=== PATIENT | female | born 1990 | race Caucasian/White ===

== ENCOUNTER 2016-11-22 11:33 | Emergency (ER) | payer OTHER ==
[2016-11-22 11:42] VITALS: TEMP 98.5
[2016-11-22 12:09] LABS: URINE BILIRUBIN NEGATIVE (NEGATIVE); URINE BLOOD MODERATE (NEGATIVE); URINE GLUCOSE (UA) NEGATIVE (NEGATIVE); URINE KETONE NEGATIVE (NEGATIVE); URINE LEUKOCYTE ESTERASE NEGATIVE Leu/uL (NEGATIVE); URINE PROTEIN TRACE mg/dL (<30 mg/dL)
[2016-11-22 12:10] LABS: URINE APPEARANCE CLEAR (CLEAR); URINE COLOR YELLOW (YELLOW)
--- NOTE | 2016-11-22 12:15 | ED PDOC ---
Arrival/HPI - General Historian: Patient - History of Present Illness Time/Duration: < week Symptom Onset: Sudden Symptom Course: Unchanged Quality: Pressure Severity Level: 7 <John Aponte - Last Filed: 11/22/16 17:21> <Jb Cardoso - Last Filed: 11/22/16 17:37> - General Chief Complaint: Abdominal Pain Time Seen by Provider: 11/22/16 11:42 - History of Present Illness Narrative History of Present Illness (Text): 11/22/16 12:08 This is a 26 year old female with PMHx seizures and UTI who presented for evaluation of abdominal pain. Pain is along the left lower quadrant and is non- radiating, described as a 7/10 pressure sensation. Patient states that pain began 2 days ago and is not relieved by Ibuprofen. At the same time, patient also started experiencing clear non-odorous vaginal discharge. Patient states that her pain feels different from the time she had a UTI. Patient denies fever , chills, n/v/c/d, chest pain, dyspnea, dysuria. Patient's LMP was on 11/11/16. ( John Aponte) Past Medical History - Provider Review Nursing Documentation Reviewed: Yes - Infectious Disease Hx of Infectious Diseases: None - Reproductive Menopause: No - Neurological Hx Seizures: Yes - Psychiatric Hx Substance Use: Yes <SukiJohn fletcher - Last Filed: 11/22/16 17:21> Family/Social History - Physician Review Nursing Documentation Reviewed: Yes Family/Social History: No Known Family HX Smoking Status: Current Some Days Smoker Hx Alcohol Use: No Hx Substance Use: Yes Substance used: marijuana <FayJohn S - Last Filed: 11/22/16 17:21> Allergies/Home Meds <John Aponte - Last Filed: 11/22/16 17:21> <Jb Cardoso - Last Filed: 11/22/16 17:37> Allergies/Adverse Reactions: Allergies No Known Allergies Allergy (Verified 11/22/16 11:40) Review of Systems - Review of Systems Constitutional: Normal. absent: Fevers Eyes: Normal ENT: Normal Respiratory: Normal. absent: SOB Cardiovascular: Normal. absent: Chest Pain Gastrointestinal: Abdominal Pain (left lower quadrant). absent: Constipation, Diarrhea, Nausea, Vomiting Genitourinary Female: Vaginal Discharge (clear non-odorous). absent: Dysuria Musculoskeletal: Normal Skin: Normal Neurological: Normal Endocrine: Normal Hemo/Lymphatic: Normal Psychiatric: Normal <John Aponte - Last Filed: 11/22/16 17:21> Physical Exam Vital Signs Reviewed: Yes Temperature: Afebrile Blood Pressure: Normal Pulse: Regular Respiratory Rate: Normal Appearance: Positive for: Well-Appearing Pain Distress: None Mental Status: Positive for: Alert and Oriented X 3 - Systems Exam Head: Present: Atraumatic, Normocephalic Pupils: Present: PERRL Extroacular Muscles: Present: EOMI Conjunctiva: Present: Normal Mouth: Present: Moist Mucous Membranes Neck: Present: Normal Range of Motion Respiratory/Chest: Present: Clear to Auscultation, Good Air Exchange. No: Accessory Muscle Use Cardiovascular: Present: Regular Rate and Rhythm, Normal S1, S2 Abdomen: Present: Tenderness (LLQ tenderness primarily but some LUQ tenderness as well. ), Normal Bowel Sounds. No: Distention Genitourinary/Pelvic Exam: Present: Normal External Genitalia, Vaginal Discharge (thick white discharge), Adenexal Tenderness (left sided), Cervical os Closed, Other (evidence of yeast present). No: Cervical Motion Tendernes Back: No: CVA Tenderness Upper Extremity: Present: Normal Inspection, NORMAL PULSES. No: Edema Lower Extremity: Present: Normal Inspection, NORMAL PULSES. No: Edema, CALF TENDERNESS Neurological: Present: GCS=15, CN II-XII Intact Skin: Present: Warm, Dry, Normal Color Psychiatric: Present: Alert, Oriented x 3 <John Aponte S - Last Filed: 11/22/16 17:21> Vital Signs Temp Pulse Resp BP Pulse Ox 11/22/16 16:28 66 18 106/71 99 11/22/16 15:21 69 18 104/69 99 11/22/16 13:00 74 18 102/68 99 11/22/16 11:41 98.5 F 70 16 96/67 L 98 Medical Decision Making - Lab Interpretations I have reviewed the lab results: Yes <John Aponte S - Last Filed: 11/22/16 17:21> <Jb Cardoso L - Last Filed: 11/22/16 17:37> ED Course and Treatment: 11/22/16 12:19 Impression: This is a 26 year old female with complaint of LLQ abdominal pain. Pelvic exam chaperoned by JOBY Nguyen. There is evidence of yeast infection as well as left adnexal tenderness on exam. Plan: CBC, CMP, Amylase, Lipase UA Chlamydia/Gonococcal studies Toradol 30 mg IV ordered for pain Transvaginal Ultrasound Ordered: Impression: Right adnexal cyst. Both ovaries do exhibit arterial flow. No definitive secondary signs of right ovarian torsion. Despite the left adnexal tenderness, the cyst was found on the right side per report. 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 Patient given [address] abdomen/pelvis w. PO & IV contrast ordered. 11/22/16 17:18 CT abdomen/pelvis w. PO & IV contrast: FINDINGS: LOWER THORAX: The lung bases are clear. LIVER: The liver is normal in size and there is homogeneous enhancement. No gross lesion or ductal dilatation. GALLBLADDER AND BILE DUCTS: There are no calcified gallstones. PANCREAS: The pancreas is normal in size and there is homogeneous enhancement. No gross lesion or ductal dilatation. SPLEEN: The spleen is normal in size without focal lesion. ADRENALS: Both adrenal glands are normal in size without discrete nodule both. KIDNEYS AND URETERS: Unremarkable. No hydronephrosis. No solid mass. VASCULATURE: Unremarkable. No aortic aneurysm. BOWEL: The small bowel loops are normal in caliber. There is moderate amount of stool in the colon. No bowel dilatation or obstruction APPENDIX: Normal appendix. PERITONEUM: No free fluid. No free air. LYMPH NODES: No enlarged lymph nodes. BLADDER: Over distended and normal in appearance. REPRODUCTIVE: The uterus is normal in size. Both ovaries are positioned higher up in the lower quadrants. There is a 2.5 cm simple cyst in the right ovary BONES: No acute fracture. OTHER FINDINGS: There is a small fat containing umbilical hernia. IMPRESSION: No acute abdominal or pelvic abnormality. No CT evidence for acute appendicitis. Constipation. No evidence of bowel obstruction Both ovaries are positioned higher in the lower quadrants. 2.5 cm simple cyst in the right ovary. 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 She stated that she had an appointment with her frame pulley mortising machine operator on December 05. Patient was instructed to return to the ED if worsening or new concerning symptoms. (John Aponte) A 26 year old female with abdominal pain. In agreement with resident note, which includes further HPI details. Patient was seen and evaluated with resident , came up with plan and treatment together. 11/22/16 17:18 CT and US reviewed. Patient was explained results. Abdomen on reevaluation had mild tenderness left side with no guarding. Improved from arrival. She feels better. She is tolerating PO fluids and food. She will make sure to follow up with OBGYN as she has scheduled on Dec 05. She will return to the ED if symptoms worsen or any other concern. (Jb Cardoso) - Lab Interpretations Lab Results: 11/22/16 12:19 11/22/16 12:19 Lab Results 11/22/16 12:19: Sodium 140, Potassium 4.1, Chloride 104, Carbon Dioxide 29, Anion Gap 11, BUN 14, Creatinine 0.5, Est GFR ( Amer) > 60, Est GFR (Non- Af Amer) > 60, Random Glucose 81, Calcium 9.2, Total Bilirubin 0.3, AST 19, ALT 33, Alkaline Phosphatase 76, Total Protein 7.1, Albumin 3.9, Globulin 3.2, Albumin/Globulin Ratio 1.2, Amylase 65, Lipase 65 11/22/16 12:19: WBC 9.8, RBC 4.26, Hgb 11.4 L, Hct 35.0 L, MCV 82.2, MCH 26.8, MCHC 32.6, RDW 13.9, Plt Count 262, MPV 10.0, Gran % 65.5, Lymph % (Auto) 26.8, [place] % (Auto) 5.8, Eos % (Auto) 1.7, Baso % (Auto) 0.2, Gran # 6.43, Lymph # 2.6 , [place] # 0.6, Eos # 0.2, Baso # 0.02 11/22/16 12:06: Urine Color Yellow, Urine Appearance Clear, Urine pH 7.0, Ur Specific [place] 1.020, Urine Protein Trace H, Urine Glucose (UA) Negative, Urine Ketones Negative, Urine Blood Moderate H, Urine Nitrate Negative, Urine Bilirubin Negative, Urine Urobilinogen 1.0 H, Ur Leukocyte Esterase Negative, Urine RBC 2 - 5, Urine WBC 0 - 2, Ur Epithelial Cells 6 - 8, Urine Bacteria Few - RAD Interpretation Radiology Orders: 11/22/16 12:39 TRANSVAGINAL [US] Stat 11/22/16 13:54 ABDOMEN & PELVIS [ABD PELVIS PO & IV CONTRAST] [CT] Stat - Medication Orders Current Medication Orders: Discontinued Medications Iohexol (Omnipaque 350 100 Ml) Confirm Administered Dose 350 mg .ROUTE .STK-MED ONE Stop: 11/22/16 14:00 Iohexol (Omnipaque 240 (50 Ml)) Confirm Administered Dose 50 ml .ROUTE .STK-MED ONE Stop: 11/22/16 14:05 Ketorolac Tromethamine (Toradol) 30 mg IVP STAT STA Stop: 11/22/16 12:38 Last Admin: 11/22/16 12:46 Dose: 30 mg MAR Pain Assessment Document 11/22/16 12:46 EQ (Rec: 11/22/16 12:46 [place] [id number] Pain Reassessment Is this a pain reassessment? No Sleep Is patient sleeping during reassessment? No Presence of Pain Presence of Pain Yes Pain Scale Used Pain Scale Used Numeric IVP Administration Document 11/22/16 12:46 EQ (Rec: 11/22/16 12:46 EQ [facility] [id number] Charges for Administration # of IVP Administrations 1 Morphine Sulfate (Morphine) 2 mg IVP STAT STA Stop: 11/22/16 13:56 Last Admin: 11/22/16 14:25 Dose: 2 mg MAR Pain Assessment Document 11/22/16 14:25 EQ (Rec: 11/22/16 14:25 EQ [facility] [place] [id number] Pain Reassessment Is this a pain reassessment? No Sleep Is patient sleeping during reassessment? No Presence of Pain Presence of Pain Yes Pain Scale Used Pain Scale Used Numeric IVP Administration Document 11/22/16 14:25 EQ (Rec: 11/22/16 14:25 EQ [facility] [id number] Charges for Administration # of IVP Administrations 1 <John Aponte - Last Filed: 11/22/16 17:21> - PA / LOOM OPERATOR APPRENTICE / Resident Statement MD/DO has reviewed & agrees with the documentation as recorded. MD/DO has examined the patient and agrees with the treatment plan. - Scribe Statement The provider has reviewed the documentation as recorded by the Scribe <Jb Cardoso - Last Filed: 11/22/16 17:37> - Scribe Statement Shahida Ocampo Provider Scribe Attestation: All medical record entries made by the Scribe were at my direction and personally dictated by me. I have reviewed the chart and agree that the record accurately reflects my personal performance of the history, physical exam, medical decision making, and the department course for this patient. I have also personally directed, reviewed, and agree with the discharge instructions and disposition. (Jb Cardoso) Disposition/Present on Arrival - Present on Arrival Any Indicators Present on Arrival: No History of DVT/PE: No History of Uncontrolled Diabetes: No Urinary Catheter: No History of Decub. Ulcer: No History Surgical Site Infection Following: None - Disposition Have Diagnosis and Disposition been Completed?: Yes Disposition Time: 05:00 <John Aponte - Last Filed: 11/22/16 17:21> - Disposition Patient Plan: Discharge <Jb Cardoso - Last Filed: 11/22/16 17:37> - Disposition Diagnosis: Abdominal pain, Vaginal candidiasis Disposition: HOME/ ROUTINE Condition: IMPROVED Discharge Instructions (ExitCare): Vulvovaginal Candidiasis (ED), Acute Abdominal Pain (ED) Additional Instructions: Ms Figueroa, thank you for letting us take care of you today. Your provider was Dr. Cardoso. You were treated for Abdominal pain, Vaginal Candidiasis. The emergency medical care you received today was directed at your acute symptoms. If you were prescribed any medication, please fill it and take as directed. It may take several days for your symptoms to resolve. Return to the Emergency Department if your symptoms worsen, do not improve, or if you have any other problems. Please contact your doctor or call one of the physicians/clinics you have been referred to that are listed on the Patient Visit Information form that is included in your discharge packet. Bring any paperwork you were given at discharge with you along with any medications you are taking to your follow up visit. Our treatment cannot replace ongoing medical care by a primary care provider (PCP) outside of the emergency department. Thank you for allowing the [facility] team to be part of your care today. If you had an X-Ray or CT scan: A Radiologist will review the ED reading if any change in treatment is needed we will contact you. If you had a blood, urine, or wound culture: It will take several days for the results, if any change in treatment is needed we will contact you. If you had an STI test: It will take 48 hours for the results. Please call after 1 week if you have not heard back. Prescriptions: Clotrimazole 1% Vaginal [Lotrimin 1% Vaginal] 1 appful VG QPM #1 tube Naproxen 500 mg PO BID PRN #30 tab PRN Reason: Pain, Moderate (4-7) Referrals: Ayan Houston DO [Staff Provider] - Follow up with primary PCP,NO [Primary Care Provider] - Follow up with primary Forms: [employer] (Palestinian)
[2016-11-22 12:16] LABS: URINE BACTERIA FEW (NEG); URINE WBC 0 - 2 /hpf (0-6)
[2016-11-22 12:32] LABS: ALB/GLOB RATIO 1.2 (1.1-1.8); ALKALINE PHOSPHATASE 76 U/L (38-126); ALT/SGPT 33 U/L (7-56); AMYLASE 65 U/L (35-125); AST/SGOT 19 U/L (14-36); BILIRUBIN,TOTAL 0.3 mg/dL (0.2-1.3); BLOOD UREA NITROGEN 14 mg/dL (7-21); CALCIUM 9.2 mg/dL (8.4-10.5); CARBON DIOXIDE 29 mmol/L (21-33); CHLORIDE 104 mmol/L (98-107); GFR AFRICAN-AMERICAN > 60; GLUCOSE,RANDOM 81 mg/dL (70-110); LIPASE 65 U/L (23-300); POTASSIUM 4.1 mmol/L (3.6-5.0); SODIUM 140 mmol/L (132-148); TOTAL PROTEIN 7.1 g/dL (5.8-8.3)
[2016-11-22 12:35] LABS: BASO # 0.02 K/mm3 (0.0-2.0); BASO % 0.2 % (0.0-3.0); EOS # 0.2 (0.0-0.7); EOS % 1.7 % (1.5-5.0); GRAN # 6.43 (1.4-6.5); GRAN % 65.5 % (50.0-68.0); LYMPH # 2.6 (1.2-3.4); LYMPH % 26.8 % (22.0-35.0); MEAN CELL VOLUME 82.2 fl (80.0-105.0); MEAN CORPUSCULAR HEMOGLOBIN 26.8 pg (25.0-35.0); MEAN CORPUSCULAR HGB CONC 32.6 g/dl (31.0-37.0); MONO # 0.6 (0.1-0.6); MONO % 5.8 % (1.0-6.0); RED CELL DISTRIBUTION WIDTH 13.9 % (11.5-14.5); WHITE BLOOD COUNT 9.8 10^3/ul (4.5-11.0)
[2016-11-22 13:11] VITALS: RESP 18; O2SAT 99
--- NOTE | 2016-11-22 13:33 | US ---
HISTORY: r/o ovarian torson. left adnexal tenderness COMPARISON: None available. TECHNIQUE: Transabdominal/transvaginal sonographic evaluation of the pelvis performed. FINDINGS: UTERUS: Uterus is anteverted measuring approximately 8.8 x 5.3 x 6.0 cm cm. Normal in size and appearance. No fibroid or other mass lesion seen. ENDOMETRIUM: Measures approximately 6.6 mm mm in diameter. Unremarkable. CERVIX: Cervix measures approximately 3.3 cm. No cervical abnormality identified. RIGHT OVARY: Measures approximately 3.8 x 2.4 x 4.6 cm. No solid mass. Normal flow. . Note made of a small cyst measuring approximately 1.9 x 1.3 x 2.3 cm. The right ovary exhibits arterial flow. No definitive evidence of secondary signs of torsion such is enlargement or edema however clinical correlation recommended. LEFT OVARY: Measures approximately 2.7 x 2.1 x 3.5 cm. No solid mass. Normal flow. FREE FLUID: No significant free fluid noted. OTHER FINDINGS: None. IMPRESSION: Right adnexal cyst. . Both ovaries and do exhibit arterial flow. Note that no definitive evidence of secondary signs of right ovarian torsion however clinical correlation recommended.
[2016-11-22] MEDS ORDERED: Morphine 2 mg/ml ISec IVP STA (13:55)
[2016-11-22] MEDS ORDERED: Iohexol 350 MG/100 ML VIAL ONE (13:59)
[2016-11-22] MEDS ORDERED: Iohexol 240 (50 ml) ONE (14:04)
[2016-11-22 16:33] VITALS: BP 106/71; PULSE 66
--- NOTE | 2016-11-22 16:41 | CT ---
PROCEDURE: CT Abdomen and Pelvis with contrast HISTORY: abdominal pain. r/o appendicitis or diverticulitis COMPARISON: None. TECHNIQUE: CT scan of the abdomen and pelvis was performed after intravenous administration of contrast. Oral contrast was administered. Coronal and sagittal reformatted images were obtained. Contrast dose: 100 mL Omnipaque 350 Radiation dose: Total exam DLP = 479.93 mGy-cm. This CT exam was performed using one or more of the following dose reduction techniques: Automated exposure control, adjustment of the mA and/or kV according to patient size, and/or use of iterative reconstruction technique. FINDINGS: LOWER THORAX: The lung bases are clear. LIVER: The liver is normal in size and there is homogeneous enhancement. No gross lesion or ductal dilatation. GALLBLADDER AND BILE DUCTS: There are no calcified gallstones. PANCREAS: The pancreas is normal in size and there is homogeneous enhancement. No gross lesion or ductal dilatation. SPLEEN: The spleen is normal in size without focal lesion. ADRENALS: Both adrenal glands are normal in size without discrete nodule both. KIDNEYS AND URETERS: Unremarkable. No hydronephrosis. No solid mass. VASCULATURE: Unremarkable. No aortic aneurysm. BOWEL: The small bowel loops are normal in caliber. There is moderate amount of stool in the colon. No bowel dilatation or obstruction APPENDIX: Normal appendix. PERITONEUM: No free fluid. No free air. LYMPH NODES: No enlarged lymph nodes. BLADDER: Over distended and normal in appearance. REPRODUCTIVE: The uterus is normal in size. Both ovaries are positioned higher up in the lower quadrants. There is a 2.5 cm simple cyst in the right ovary BONES: No acute fracture. OTHER FINDINGS: There is a small fat containing umbilical hernia. IMPRESSION: No acute abdominal or pelvic abnormality. No CT evidence for acute appendicitis. Constipation. No evidence of bowel obstruction Both ovaries are positioned higher in the lower quadrants. 2.5 cm simple cyst in the right ovary.
== END 2016-11-22 17:17 | disposition home or self-care (01) ==
LOC: ED 11:33
DX: B37.3 Candidiasis of vulva and vagina (principal); R10.9 Unspecified abdominal pain
CPT/HCPCS: 74177; 76830; 80053; 81001; 82150; 83690; 85025; 87491; 87591; 96374; 96375; 99284; J1885; J2270; Q9966; Q9967

== ENCOUNTER 2016-12-08 13:52 | Emergency (ER) | payer OTHER ==
[2016-12-08 14:20] VITALS: TEMP 98.3
--- NOTE | 2016-12-08 14:44 | ED PDOC ---
Arrival/HPI - General Chief Complaint: Seizure Time Seen by Provider: 12/08/16 14:34 Historian: Patient - History of Present Illness Narrative History of Present Illness (Text): 12/08/16 14:30 A 26 year old female, whose past medical history includes seizures since childhood currently taking topamax and lamictal, presents to emergency department immediately after a witnessed seizure. The patient states she fell off the bed and currently has neck pain. The patient is no longer postictal. The patient denies any other complaints at this time. Time/Duration: Prior to Arrival Symptom Onset: Sudden Symptom Course: Improving Activities at Onset: Light Context: Home Past Medical History - Provider Review Nursing Documentation Reviewed: Yes - Infectious Disease Hx of Infectious Diseases: None - Reproductive Menopause: No - Neurological Hx Seizures: Yes - Psychiatric Hx Substance Use: Yes - Anesthesia Hx Anesthesia: No Family/Social History - Physician Review Nursing Documentation Reviewed: Yes Family/Social History: Unknown Family HX Smoking Status: Current Some Days Smoker Hx Alcohol Use: No Hx Substance Use: Yes Substance used: marijuana Allergies/Home Meds Allergies/Adverse Reactions: Allergies No Known Allergies Allergy (Verified 12/08/16 14:14) Home Medications: Home Meds Medication Instructions Recorded Confirmed Topiramate [Topamax] 0 mg PO BID 12/08/16 12/08/16 Physical Exam - Physical Exam Narrative Physical Exam (Text): 12/08/16 14:42 - Review of Systems Constitutional: Normal. absent: Fatigue, Weight Change, Fevers Eyes: Normal ENT: denies sore throat, denies tristhmus Respiratory: Normal. absent: SOB, Cough, Sputum Cardiovascular: absent: Chest Pain, Palpitations, Syncope Gastrointestinal: Normal. absent: Abdominal Pain, Diarrhea, Nausea, Vomiting Genitourinary: Normal. absent: Dysuria, Frequency, Hematuria Musculoskeletal: Neck pain. absent: Arthralgias, Back Pain, Neck Pain Skin: no rashes, no erythema Neurological: absent: Focal Weakness Endocrine: Normal Hemo/Lymphatic: Normal Psychiatric: No suicidal or homicidal ideations Physical exam Patient appears age appropriate in no distress, speaking full sentences without difficulty Head atraumatic. No nasal bone deformity or tenderness, no facial or jaw pain/ swelling. No neck midline tenderness, thoracic and lumbar spine with no midline tenderness. Pt moving b/l upper and lower extremities without difficulty, 5/5 strength, with full active and passive ROM. Distal neurovasc fully intact. Abd soft/nt/nd, no hematomas, no peritoneal signs. Neg. pelvic rock. - Systems Exam Head: Present: Atraumatic, Normocephalic Pupils: Present: PERRL Extroacular Muscles: Present: EOMI Conjunctiva: Present: Normal Mouth: Present: Bilateral tongue abrasions Moist Mucous Membranes Neck: Present: Normal Range of Motion. No: MIDLINE TENDERNESS, Paraspinal Tenderness Respiratory/Chest: Present: Clear to Auscultation, Good Air Exchange. No: Respiratory Distress, Accessory Muscle Use, Tachypneic Cardiovascular: Present: Regular Rate and Rhythm, Normal S1, S2, Peripheal Pulses Present. No: Murmurs Abdomen: Present: Normal Bowel Sounds. No: Tenderness, Distention, Peritoneal Signs, Rebound, Guarding Back: Present: Normal Inspection. No: Midline Tenderness, Paraspinal Tenderness Upper Extremity: Present: Normal Inspection. No: Cyanosis, Edema Lower Extremity: Present: Normal Inspection. No: Edema Neurological: Present: GCS=15, Speech Normal, cranial nerves II through XII fully intact with no cerebellar abnormality, neurosensory fully intact. No focal neurological deficits. Skin: Present: Warm, Dry, Normal Color. No: Rashes Lymphatic: Present: OX3, NI, NC Psychiatric: Present: Alert, Oriented x 3, Normal Insight, Normal Concentration Vital Signs Reviewed: Yes Vital Signs Temp Pulse Resp BP Pulse Ox 12/08/16 14:19 98.3 F 84 18 100/56 L 99 12/08/16 14:07 98 F 76 16 98/64 L 98 Temperature: Afebrile Blood Pressure: Hypotensive Pulse: Regular Respiratory Rate: Normal Appearance: Positive for: Well-Appearing, Non-Toxic, Comfortable Pain Distress: None Mental Status: Positive for: Alert and Oriented X 3 Medical Decision Making ED Course and Treatment: 12/08/16 14:45 Differential Diagnosis included but are not limited to: Seizure Plan: -- Radiology: Cervical Spine -- Labs -- Reassess and disposition Progress Notes: Patient's private neurologist paged; waiting for a call back. 12/08/2016 15:54 Cervical Spin X-Ray IMPRESSION: Normal cervical spine radiographs. Dictator: Benjamin Whitmore MD 12/08/16 16:[address] Dano Vizcaino. waldo Mesa in detail, states to dc pt home on Ativan 1mg PO before bedtime pt states she will make an appt for f/u outpatient states she feels comfortable being dc'd home reports she does not drive, states she is compliant with her medications Pt states she understands to return to the ER right away for new or worsening symptoms or for inability to f/u with PMD or specialist as instructed. Patient states that she fully agrees with and understands discharge instructions. States that she agrees with the plan and disposition. Verbalized and repeated discharge instructions and plan. I have given the patient opportunity to ask any additional questions. - Lab Interpretations Lab Results: 12/08/16 14:45 12/08/16 14:45 Lab Results 12/08/16 14:45: Sodium 141, Potassium 3.6, Chloride 104, Carbon Dioxide 28, Anion Gap 13, BUN 11, Creatinine 0.6 L, Est GFR ( Amer) > 60, Est GFR ( Non-Af Amer) > 60, Random Glucose 102, Calcium 9.0, Total Bilirubin 0.7, AST 22 , ALT 28, Alkaline Phosphatase 70, Total Protein 7.2, Albumin 4.0, Globulin 3.3 , Albumin/Globulin Ratio 1.2 12/08/16 14:45: WBC 7.8 D, RBC 4.18, Hgb 11.2 L, Hct 34.1 L, MCV 81.6, MCH 26.8 , MCHC 32.8, RDW 13.7, Plt Count 269, MPV 9.7, Gran % 65.0, Lymph % (Auto) 26.0 , [place] % (Auto) 5.9, Eos % (Auto) 2.8, Baso % (Auto) 0.3, Gran # 5.04, Lymph # 2.0, [place] # 0.5, Eos # 0.2, Baso # 0.02 - RAD Interpretation Radiology Orders: 12/08/16 14:34 CERVICAL SPINE >18YR W/OBLIQUE [RAD] Stat - Scribe Statement The provider has reviewed the documentation as recorded by the Scribe Kathryn Ventura Provider Scribe Attestation: All medical record entries made by the Scribe were at my direction and personally dictated by me. I have reviewed the chart and agree that the record accurately reflects my personal performance of the history, physical exam, medical decision making, and the department course for this patient. I have also personally directed, reviewed, and agree with the discharge instructions and disposition. Disposition/Present on Arrival - Present on Arrival Any Indicators Present on Arrival: No History of DVT/PE: No History of Uncontrolled Diabetes: No Urinary Catheter: No History of Decub. Ulcer: No History Surgical Site Infection Following: None - Disposition Have Diagnosis and Disposition been Completed?: Yes Diagnosis: Seizure Disposition: HOME/ ROUTINE Disposition Time: 16:58 Patient Plan: Discharge Condition: GOOD Discharge Instructions (ExitCare): Recurrent Seizures in Adults (ED), Epilepsy (ED) Additional Instructions: PLEASE RETURN TO THE EMERGENCY DEPARTMENT FOR NEW OR WORSENING SYMPTOMS. RETURN RIGHT AWAY IF YOU CANNOT FOLLOW UP WITH YOUR PRIMARY CARE DOCTOR, CLINIC, OR SPECIALIST IN 1-2 DAYS. Prescriptions: LORazepam [Ativan] 1 mg PO DAILY #5 tab Referrals: Elijah Collins, [Primary Care Provider] - Follow up with primary Lennox Mesa MD [Staff Provider] - Follow up with primary Shakeel Wyatt MD [Staff Provider] - Follow up with primary Forms: [employer] (Chilean), WORK NOTE
[2016-12-08 15:17] LABS: ALB/GLOB RATIO 1.2 (1.1-1.8); ALKALINE PHOSPHATASE 70 U/L (38-126); ALT/SGPT 28 U/L (7-56); AST/SGOT 22 U/L (14-36); BILIRUBIN,TOTAL 0.7 mg/dL (0.2-1.3); BLOOD UREA NITROGEN 11 mg/dL (7-21); CARBON DIOXIDE 28 mmol/L (21-33); CHLORIDE 104 mmol/L (98-107); GFR AFRICAN-AMERICAN > 60; GLUCOSE,RANDOM 102 mg/dL (70-110); POTASSIUM 3.6 mmol/L (3.6-5.0); SODIUM 141 mmol/L (132-148); TOTAL PROTEIN 7.2 g/dL (5.8-8.3)
[2016-12-08 15:26] LABS: BASO # 0.02 K/mm3 (0.0-2.0); BASO % 0.3 % (0.0-3.0); EOS # 0.2 (0.0-0.7); EOS % 2.8 % (1.5-5.0); GRAN # 5.04 (1.4-6.5); HEMATOCRIT 34.1 % (36.0-48.0); MEAN CELL VOLUME 81.6 fl (80.0-105.0); MEAN CORPUSCULAR HEMOGLOBIN 26.8 pg (25.0-35.0); MEAN CORPUSCULAR HGB CONC 32.8 g/dl (31.0-37.0); MEAN PLATELET VOLUME 9.7 fl (7.0-11.0); MONO # 0.5 (0.1-0.6); MONO % 5.9 % (1.0-6.0); RED CELL DISTRIBUTION WIDTH 13.7 % (11.5-14.5); WHITE BLOOD COUNT 7.8 10^3/ul (4.5-11.0)
--- NOTE | 2016-12-08 15:56 | RAD ---
PROCEDURE: Cervical Spine Radiographs. HISTORY: Pain. COMPARISON: None. FINDINGS: BONES: Alignment maintained. No fracture. Dens Intact. DISC SPACES: Normal. SOFT TISSUES: Normal. No prevertebral soft tissue swelling. OTHER FINDINGS: None. IMPRESSION: Normal cervical spine radiographs
[2016-12-08 17:21] VITALS: BP 106/62; PULSE 80; RESP 16; O2SAT 97
== END 2016-12-08 17:46 | disposition home or self-care (01) ==
LOC: ED 13:52
DX: G40.909 Epilepsy, unspecified, not intractable, without status epilepticus (principal)
CPT/HCPCS: 72050; 80053; 85025; 96374; 99284; J1885